=== PATIENT | female | born 1955 | race Hispanic/Latino ===

== ENCOUNTER 2023-11-04 09:57 | Outpatient (CLI) | payer MEDICARE, OTHER | END 2023-11-04 09:58 | disposition home or self-care (01) | LOC: CSHCP 09:57 | PROVIDERS: ATTEND Internal Medicine | DX: Z87.891 Personal history of nicotine dependence (principal) | CPT/HCPCS: 94060; 94618; 94726; 94729 ==

== ENCOUNTER 2024-07-21 09:07 | Outpatient (CLI) | payer MEDICARE, OTHER | END 2024-07-21 09:08 | disposition home or self-care (01) | LOC: CSHSLEEP 09:07 | PROVIDERS: ATTEND Family Medicine | DX: G47.9 Sleep disorder, unspecified (principal); R53.83 Other fatigue; F32.A Depression, unspecified; R06.83 Snoring; G47.33 Obstructive sleep apnea (adult) (pediatric) | CPT/HCPCS: 95800 ==